=== PATIENT | male | born 1980 | race African-American/Black ===

== ENCOUNTER 2021-02-10 14:07 | Emergency (ER) | payer MEDICAID ==
[~2021-02-10] VITALS: Ht 180.3 cm; Wt 168.7 kg
[2021-02-10 14:25] VITALS: BP 142/96
--- NOTE | 2021-02-10 14:30 | NUR ---
TO ER BED 15 AWAITING MD ROBLEDO
[2021-02-10] MEDS ORDERED: AMOX-430 PO (14:34)
--- NOTE | 2021-02-10 14:53 | NUR ---
Patient discharged to home in stable condition. Written and verbal after care instructions given. Patient verbalizes understanding of instruction.
== END 2021-02-10 14:52 | disposition home or self-care (01) ==
LOC: ER 14:16
DX: H60.92 Unspecified otitis externa, left ear (principal); I10 Essential (primary) hypertension; F17.200 Nicotine dependence, unspecified, uncomplicated